=== PATIENT | male | born 1965 | race Caucasian/White ===

== ENCOUNTER 2021-10-06 13:34 | Inpatient (IN) | payer OTHER ==
[~2021-10-06] VITALS: Ht 170.2 cm; Wt 91.0 kg
[2021-10-06] MEDS ORDERED: SINEMET 25-1001 EACH PO (13:58)
[2021-10-06] MEDS ORDERED: ONDANSETRON HCL INJ 2MG/ML 2ML 2 MG/ML VIAL IV ONE (15:26)
[2021-10-06] MEDS ORDERED: METHYLPREDNISOLONE SOD SUCC 125 MG/2ML VIAL IV ONE (15:30)
[2021-10-06] MEDS ORDERED: METHYLPREDNISOLONE SOD SUCC 125 MG/2ML VIAL ONE ×2 (15:37→15:48)
[2021-10-06] MEDS ORDERED: SODIUM CHLORIDE 0.9% 250ML 250 ML ONE (15:38)
[2021-10-06] MEDS ORDERED: ONDANSETRON HCL INJ 2MG/ML 2ML 2 MG/ML VIAL ONE ×2 (15:39→17:08)
[2021-10-06] MEDS: SODIUM CHLORIDE 0.9% 1000ML 1,000 ML IV SCH (15:44)
[2021-10-06] MEDS: IPRATROPIUM/ALBUTEROL SULFATE 4 GM INH INH SCH (15:44)
[2021-10-06] MEDS ORDERED: SODIUM CHLORIDE 0.9% 1000ML 1,000 ML ONE (15:59)
[2021-10-06] MEDS ORDERED: SODIUM CHLORIDE FLUSH 10 ML SYR INJ PRN (17:00)
[2021-10-06] MEDS ORDERED: ONDANSETRON HCL INJ 2MG/ML 2ML 2 MG/ML VIAL IV PRN (17:00)
[2021-10-06] MEDS: ALBUTEROL/IPRATROPIUM 3 ML NEB NEB SCH (19:00)
[2021-10-06 20:48] VITALS: BP 134/84
[2021-10-06 21:00] VITALS: BP 134/84
[2021-10-06] MEDS: METHYLPREDNISOLONE SOD SUCC 125 MG/2ML VIAL IV SCH (23:00)
[2021-10-06] MEDS ORDERED: MELATONIN 5 MG TABLET PO PRN (23:30)
[2021-10-07] VITALS (7 sets, daily range): BP systolic 119–131; BP diastolic 67–84
[2021-10-07] MEDS: ALBUTEROL/IPRATROPIUM 3 ML NEB NEB SCH ×4 (01:00→19:00)
[2021-10-07] MEDS: SODIUM CHLORIDE 0.9% 1000ML 1,000 ML IV SCH ×3 (01:30→21:30)
[2021-10-07] MEDS ORDERED: ACETAMINOPHEN 325 MG TAB PO PRN (01:30)
[2021-10-07] MEDS: IPRATROPIUM/ALBUTEROL SULFATE 4 GM INH INH SCH ×7 (03:00→22:02)
[2021-10-07] MEDS ORDERED: GUAIFENESIN/DEXTROMETHORPHAN LIQD 5 ML UDC NG PRN (06:30)
[2021-10-07] MEDS: METHYLPREDNISOLONE SOD SUCC 125 MG/2ML VIAL IV SCH ×3 (06:30→22:30)
[2021-10-07 08:09] LABS: BASOPHILS % 0.2 % (0.0-1.0); HEMATOCRIT 45.8 % (38.2-49.6); HEMOGLOBIN 15.4 g/dL (14.0-18.0); LYMPHOCYTES # (AUTO) 0.9 (1.0-3.2); LYMPHOCYTES % 20.8 % (18.0-39.1); MEAN CORPUSCULAR HEMOGLOBIN 32.7 pg (28-32); MEAN CORPUSCULAR HGB CONC 33.6 g/dL (31-35); MEAN CORPUSCULAR VOLUME 97.2 fL (81-99); MONOCYTES # (AUTO) 0.2 (0.2-0.8); MONOCYTES % 5.5 % (4.4-11.3); NEUTROPHILS # (AUTO) 3.2 (2.1-6.9); NEUTROPHILS % 73.3 % (38.7-80.0); PLATELET COUNT 168 x10e3/uL (140-360); RED BLOOD COUNT 4.71 x10e6/uL (4.3-5.7); RED CELL DISTRIBUTION WIDTH 11.9 % (11.7-14.4)
[2021-10-07 08:33] LABS: ANION GAP 13.6 mmol/L (8-16); CALCIUM 8.8 mg/dL (8.4-10.2); CREATININE, SERUM 0.73 mg/dL (0.72-1.25); POTASSIUM 4.6 mmol/L (3.5-5.1)
[2021-10-07 08:54] LABS: CHOL/HDL RATIO 4.3 (3.9-4.7)
[2021-10-07] MEDS ORDERED: CARBIDOPA/LEVODOPA 25/100 TAB PO SCH (09:00)
[2021-10-07] MEDS: LORATADINE 10 MG TAB PO SCH (09:15)
[2021-10-07] MEDS: FAMOTIDINE 20 MG TAB PO SCH ×2 (09:15→16:30)
[2021-10-07] MEDS ORDERED: INFLUENZA VIRUS VAC SPLIT INJ 0.5 ML SYR IM ONE (10:00)
[2021-10-07] MEDS: CARBIDOPA/LEVODOPA 25/100 TAB PO SCH ×2 (15:00→21:45)
[2021-10-07] MEDS: BENZONATATE 100 MG CAP PO PRN ×2 (22:30)
[2021-10-08] VITALS (7 sets, daily range): BP systolic 121–129; BP diastolic 70–81
[2021-10-08] MEDS: ALBUTEROL/IPRATROPIUM 3 ML NEB NEB SCH ×3 (01:00→13:00)
[2021-10-08] MEDS: IPRATROPIUM/ALBUTEROL SULFATE 4 GM INH INH SCH ×6 (03:00→22:53)
[2021-10-08] MEDS: METHYLPREDNISOLONE SOD SUCC 125 MG/2ML VIAL IV SCH ×3 (05:43→21:23)
[2021-10-08] MEDS: SODIUM CHLORIDE 0.9% 1000ML 1,000 ML IV SCH ×2 (07:30→16:39)
[2021-10-08] MEDS: FAMOTIDINE 20 MG TAB PO SCH ×2 (09:05→16:39)
[2021-10-08] MEDS: LORATADINE 10 MG TAB PO SCH (09:05)
[2021-10-08] MEDS: CARBIDOPA/LEVODOPA 25/100 TAB PO SCH ×3 (09:05→21:23)
[2021-10-09] VITALS (8 sets, daily range): BP systolic 122–144; BP diastolic 70–85
[2021-10-09] MEDS: SODIUM CHLORIDE 0.9% 1000ML 1,000 ML IV SCH ×2 (02:50→13:30)
[2021-10-09] MEDS: METHYLPREDNISOLONE SOD SUCC 125 MG/2ML VIAL IV SCH ×2 (06:09→14:43)
[2021-10-09] MEDS: IPRATROPIUM/ALBUTEROL SULFATE 4 GM INH INH SCH ×5 (06:50→23:00)
[2021-10-09] MEDS: ALBUTEROL/IPRATROPIUM 3 ML NEB NEB SCH ×4 (06:55→18:25)
[2021-10-09] MEDS: CARBIDOPA/LEVODOPA 25/100 TAB PO SCH ×3 (10:23→21:00)
[2021-10-09] MEDS: FAMOTIDINE 20 MG TAB PO SCH ×2 (10:23→17:32)
[2021-10-09] MEDS: LORATADINE 10 MG TAB PO SCH (10:23)
[2021-10-09] MEDS ORDERED: PREDNISONE20 MG PO (11:59)
[2021-10-09] MEDS ORDERED: TESSALON PERLE100 MG PO (11:59)
[2021-10-09] MEDS ORDERED: LORATADINE10 MG PO (11:59)
[2021-10-09] MEDS ORDERED: Guaifenesin/Dextromethorphan NG (11:59)
[2021-10-09] MEDS ORDERED: ONDANSETRON HCL 4 MG ORAL DISINTEGRATING TAB PO PRN (13:00)
[2021-10-09] MEDS ORDERED: AZITHROMYCIN 250 MG TAB PO SCH (15:30)
[2021-10-09] MEDS: PREDNISONE 20 MG TAB PO SCH (21:00)
[2021-10-10 00:11] VITALS: BP 106/70
[2021-10-10] MEDS: ALBUTEROL/IPRATROPIUM 3 ML NEB NEB SCH ×2 (00:49→07:10)
[2021-10-10] MEDS: IPRATROPIUM/ALBUTEROL SULFATE 4 GM INH INH SCH ×3 (03:00→11:21)
[2021-10-10 06:08] VITALS: BP 125/76
[2021-10-10 07:58] VITALS: BP 152/75
[2021-10-10] MEDS: FAMOTIDINE 20 MG TAB PO SCH (08:18)
[2021-10-10] MEDS: CARBIDOPA/LEVODOPA 25/100 TAB PO SCH (09:34)
[2021-10-10] MEDS: LORATADINE 10 MG TAB PO SCH (09:34)
[2021-10-10] MEDS: BENZONATATE 100 MG CAP PO PRN (09:34)
[2021-10-10] MEDS: PREDNISONE 20 MG TAB PO SCH (09:34)
[2021-10-10 12:09] VITALS: BP 140/84
[2021-10-10 12:10] VITALS: BP 140/84
== END 2021-10-10 12:43 | disposition home or self-care (01) | DRG 203 ==
LOC: FSED 13:44 → ERHOLD 16:52 → MED/SURG3 20:50
PROVIDERS: ADMIT Internal Medicine; ATTEND Internal Medicine
DX: J20.9 Acute bronchitis, unspecified (principal); G20 Parkinson's disease; J30.9 Allergic rhinitis, unspecified; Z87.891 Personal history of nicotine dependence; Z20.822 Contact with and (suspected) exposure to COVID-19
CPT/HCPCS: 36415; 71046; 80048; 80053; 80061; 81003; 82553; 83036; 84484; 85025; 93005; 94664; 94799; 96360; 96374; 96375; 97139; 99284; J0456; J2405; J2930; J7030; J7050; J7512; U0002